=== PATIENT | female | born 1995 | race Caucasian/White ===

== ENCOUNTER 2018-01-24 02:56 | Inpatient (IN) ==
[~2018-01-24 02:56] MED LIST: *HR* Nalbuphine 10 MG/ML AMPUL IVP PRN; Famotidine 20 MG/2 ML VIAL IVP PRN; Naloxone 0.4 MG/ML INJ IVP PRN
[2018-01-24] MEDS ORDERED: Oxytocin 20 units/ LR 1000 mL 20 UNIT/1,000 ML BAG IVC SCH ×2 (03:00→10:15)
[2018-01-24] MEDS ORDERED: Ringers Solution, Lactated 1,000 ML IVC SCH (03:00)
[2018-01-24 03:16] LABS: Basophils % 0.3 %; Eosinophils # 0.1 K/mcL (0.0-0.6); Eosinophils % 0.6 %; Hematocrit 34.5 % (35.3-44.9); Hemoglobin 11.6 g/dL (11.5-15.4); Immature Granulocytes % 0.6 % (0-4); Lymphocytes # 3.3 K/mcL (0.6-4.6); Lymphocytes % 22.8 %; Mean Corpuscular HGB Conc 33.6 g/dL (31.6-35.5); Mean Corpuscular Volume 83.3 fL (83.0-100.0); Mean Platelet Volume 11.1 fL (9.4-12.4); Monocytes % 7.1 %; Platelet Count 252 K/mcL (140-400); Red Blood Count 4.14 M/mcL (3.82-4.97); Red Cell Distribution Width 14.4 % (11.5-14.5); Segmented Neutrophils % 68.6 %
[2018-01-24 03:24] LABS: Amphetamine Screen,Urine Negative ng/mL (Cutoff=1000); Barbiturate Screen,Urine Negative ng/mL (Cutoff=200); Benzodiazepines Screen,Urine Negative ng/mL (Cutoff=200); Cannabinoid Screen,Urine Positive ng/mL (Cutoff = 50); Cocaine Screen,Urine Negative ng/mL (Cutoff= 300); Opiate Screen,Urine Positive ng/mL (Cutoff=300); Phencyclidine Screen,Urine Negative ng/mL (Cutoff=25)
--- NOTE | 2018-01-24 05:08 | OB Labor Progress Note ---
Date of Encounter: 01/24/18 Time of Encounter: 03:06 Labor Progress Note - Subjective Subjective: Pt experiencing discomfort with contractions. Called in by RN for prolonged deceleration. - Cervix Cervix: 4/70/-2 rapidly changed to 5/80/-2 - Heart Tones Heart Tones: Baseline 130's Moderate variability Accelerations present Prolonged deceleration to shira 50bpm FHR Category II - [place]: every 3-5 and palpate moderate - Interventions Interventions: SVE IUPC FSE - Plan Plan: Continue expectant management Frequent position changes Anticipate Dr. Raymond made aware
[2018-01-24] MEDS ORDERED: *HR* FentaNYL (PF) 100 MCG/2 ML VIAL EP ONE (05:28)
[2018-01-24] MEDS ORDERED: Bupivacaine-MPF 0.25% 10 ML VIAL EP ONE (05:28)
[2018-01-24] MEDS ORDERED: Epidural Premix (fent/bupiv) 110 ML EP SCH (05:30)
[2018-01-24] MEDS ORDERED: Bupivacaine-MPF 0.25% 10 ML VIAL ONE (05:32)
[2018-01-24] MEDS ORDERED: *HR* FentaNYL (PF) 100 MCG/2 ML VIAL ONE (05:32)
[2018-01-24] MEDS ORDERED: Lidocaine -MPF 2% 5 ML VIAL ONE (05:32)
[2018-01-24] MEDS ORDERED: Lidocaine/EPI 1:200k 2% PF 20 ML VIAL ONE (05:33)
--- NOTE | 2018-01-24 06:18 | Anesthesia Evaluation PreOp ---
Date of Encounter: 01/24/18 Time of Encounter: 05:35 - Past History Planned Operation: labor epidural Cardiac History: Denies any Significant Hx Pulmonary History: Smoker (1/2ppd.), Asthma [employer] History: Denies Any Significant HX Other Medical History: Denies Any Significant HX Anesthesia History: No Prior Anesthetic Complications, Past Anesthesia (T&A, exc. cervical lymph node.) : Yes Alcohol Use: none Drug use: marijuana Medications and Allergies No Known Home Drugs 01/24/18 [History] 3 Allergy/AdvReac Type Severity Reaction Status Date / Time Carbinoxamine [From [facility]] Allergy Hives Verified 01/24/18 02:44 pseudoephedrine [From [facility]] Allergy Hives Verified 01/24/18 02:44 Sulfa (Sulfonamide Allergy Hives Verified 01/24/18 02:44 Antibiotics) - Meds/Allergy Pre-op Review Medications Reviewed: Yes Allergies Reviewed: Yes Beta Blockers on Current Med List: No Anesthesia Results - Labs 01/24/18 03:00 Anesthesia Exam VSS and FHTS stable. Height: 5'3" Weight: 93kg Pain Scale: 7 Pain Scale Used: Numeric (1 - 10) - HEENT Pupil (Motor): Pupils equal, EOMI Mallampati: III Teeth: Normal Oral Opening: Greater than 3 - [employer] LOC: Oriented [employer] Motor: Normal RUE, Normal LUE, Normal RLE, Normal LLE, Normal Face [employer] Sensory: Normal: RUE, LUE, RLE, LLE, Face - Cardiac Rhythm: Regular - Pulmonary Breath Sounds: bilateral Clear Respiratory Effort: Symmetrical Anesthesia Assess/Plan ASA Score: 2 Modified [place] Scale for Level of Consciousness: Cooperative, oriented, and tranquil Anesthetic Plan: Regional Monitoring Plan: Standard Monitors
--- NOTE | 2018-01-24 06:22 | Anesthesia Procedures ---
Date of Encounter: 01/24/18 Time of Encounter: 05:35 Procedures: Anesthesia - Epidural/Spinal Patient ID/Chart reviewed: Yes Patient examined: Yes OB Eval: Gestational age: 37 OB Eval: : 1 OB Eval: Hx Para: 0 OB Eval: Dilated at (cm): 6 OB Eval: Contractions: Non-stressed pattern Consent Obtained: Yes Supplemental Oxygen: None/Room Air Site Prep: Aseptic Technique, Sterile prep and drape, Povidone-Iodine 1% Patient position: upright Local Anesthetic: Lidocaine 1% Amount of Local Anesthetic used: 3 Touhy Needle Gauge: 18 Touhy Needle Depth (cm): 8 Catheter Depth at Skin (cm): 20 Test Dose (1.5% Lido + Epi): Volume given (mls): 3 Test Dose Result: Negative Loading Dose: 0.25% Marcaine (mls): 8 Loading Dose: Fentanyl (mcg): 100 Loading Dose Administered: Thru Catheter Infusion Med: 0.125% Bupivacaine w/ 2 mcg/ml Fentanyl Infusion Rate (mls/hr): [address]: Tegaderm, Tape Interspace Used: L3-L4 Loss of Resistance (OUSMANE): Yes Blood: No CSF: No Paresthesia: No Vitals + FHT's: 3 Vital Signs Time 0535 0555 0600 0605 0610 BP 181/96 175/99 170/89 161/95 155/84 Pulse 101 100 90 85 79 FHTs 120 120 120 120 120
--- NOTE | 2018-01-24 07:56 | OB/GYN History & Physical ---
Date of Encounter: 01/24/18 Time of Encounter: 07:52 Assessment and Plan (1) 37 weeks gestation of Current visit: Yes Status: Acute (2) PROM (premature rupture of membranes) Current visit: Yes Status: Acute Loin is a 22-year-old female 1 at 37 weeks and 5 days with premature rupture membranes. She is in labor progressing. Plan is expectant management. Patient will get an IV and epidural. Qualifiers: Qualified Code(s): O42.00 - Premature rupture of membranes, onset of labor within 24 hours of rupture, unspecified weeks of gestation History of Present Illness Chief complaint: R/O ROM HPI: Ms. Valle is a 22 year old female 1 who presented to labor and delivery with concern of ruptured membranes. On presentation patient is korey irregularly. She believed that she has Guille structure membranes at 12:30 AM. On presentation patient was 1 cm. She progressed to 4 cm. She has a due date of February 09 making her 37 weeks and 5 days. She is group B negative. She heart rate is 150s and category 1. She has allergies to sulfa, Rondec causing hives. Current medications include vitamins and Zofran. Chronic medical conditions include asthma. Surgical history includes a tonsillectomy and lymph node biopsy. She has no history of abnormal Pap smears, STDs or pelvic infections. She has no history of abnormal breast findings. Socially she denies tobacco, alcohol, illicit drug use. Family history significant for diabetes and thyroid disease. Past Med Surg Social Fam HX - Past Medical History Medical history: no medical history Psychiatric history: no psych history - Past Surgical History Surgical History: other Additional surgical history: T&A - Social History Smoking Status: Current every day smoker Packs per day: 1/2 Smokeless Tobacco Status: Yes Alcohol use: none Drug use: marijuana - Family History Mother Living Status: Still Living Hx Family Cardiac Disorders: Yes (HTN) Hx Family Respiratory Disorders: No Hx Family Cancer: No Hx Family GI Disorders: No Hx Family Genitourinary Disorders: No Hx Family Endocrine Disorder: No Hx Family Musculoskeletal Disorders: No Hx Family Neuromuscular Disorders: No Hx Family Neurologic Disorders: No Hx Family HEENT Disorders: No Hx Family Autoimmune Disorders: No Hx Family Reproductive Disorders: No Hx Family Psychosocial Disorders: No Hx Family Medical Disorders: No Obstetrical History - Pregnancies : 1 Medications and Allergies No Known Home Drugs 01/24/18 [History] 3 Allergy/AdvReac Type Severity Reaction Status Date / Time Carbinoxamine [From [facility]] Allergy Hives Verified 01/24/18 02:44 pseudoephedrine [From [facility]] Allergy Hives Verified 01/24/18 02:44 Sulfa (Sulfonamide Allergy Hives Verified 01/24/18 02:44 Antibiotics) Exam - Vital Signs Vital signs: Initial Vital Signs Pulse Resp BP 93 15 146/70 01/24/18 02:29 01/24/18 02:29 01/24/18 02:29 - Constitutional Constitutional: well developed - HEENT HEENT: PERRL - Neck Neck exam: full ROM - Lungs Respiratory exam: CTAB - Cardiovascular Cardiovascular exam: RRR - Breasts Breast: bilateral: normal - Abdomen Abdomen: Present: bowel sounds normal, gravid, non tender - Extremities Extremities exam: full ROM - Vagina Vagina: Present: normal moisture - Cervix Dilation: 4 Effacement: 50 Station: -2 - Uterus Uterus exam: Present: normal size Results Result Diagrams: 01/24/18 03:00 Abnormal lab results WBC 14.5 K/mcL (4.3-11.1) H 01/24/18 03:00 Hct 34.5 % (35.3-44.9) L 01/24/18 03:00 Neutrophils # 10.0 K/mcL (1.6-8.9) H 01/24/18 03:00 Urine Opiates Screen Positive ng/mL (Isbarg=885) H 01/24/18 03:00 U Marijuana (THC) Screen Positive ng/mL (Cutoff = 50) H 01/24/18 03:00 All other labs normal. - VTE Reasons for not Prescribing Prophylaxis: Treatment not Indicated - Low risk for VTE
[2018-01-24] MEDS ORDERED: *HR* Ropivacaine/PF 0.5% 20 ML VIAL ONE (08:49)
--- NOTE | 2018-01-24 09:40 | OB Labor Progress Note ---
Date of Encounter: 01/24/18 Time of Encounter: 09:35 Labor Progress Note - Subjective Subjective: Called to see patient with AL/0 station, uncomfortable. Reports feelings including pressure and urge to defecate. Pain controlled with epidural, reports intermittent "shakying" currently. Desires to practice push. - Vital Signs Vital Signs: VSS, HDS Afebrile - Cervix Cervix: AL/C/0 - Heart Tones Heart Tones: 120bpm, mod tessa, +accels, early decels with contraction(s) CAT II tracing q3min contraction(s) - [place] Moul[place]: q3min - Interventions Interventions: IVF - Plan Plan: AL was reducible, patient now C/C/0. Practice pushing with patient, will continue toward . MD Olive
--- NOTE | 2018-01-24 10:03 | OB/GYN Procedure Note ---
Delivery - Delivery Date: 01/24/18 Provider: Marlene Barker (Dr. Raymond present for delivery) Intrapartum events: none Delivery induction: oxytocin Delivery augmentation: pitocin Delivery monitor: external FHT, external uterine, internal FHT, internal uterine Anesthesia: epidural Quantitated Blood Loss: 250 - (s) Infant A Delivery Date: 01/24/18 Delivery Time: 09:48 Presentation: vertex Position: NASH Route of delivery: Gender: Male Viability: Viable Weight Gram: 2820 kg Shoulder Dystocia: not encountered Placenta: spontaneous Cord: nuchal cord (nuchal cord x1, loose, delivered through) - Repair Episiotomy: none - Complications Delivery complications: none - Disposition Mom disposition: stable in LDR - Comments Comments: Called to patient bedroom at C/C/+2. With excellent maternal effort, delivered infant in NASH position of an intact perineum with adequate breathing and excellent tones. Restitution of head to NASH position and L anterior shoulder delivered first. Loose nuchal cord x1 was appreciated at which point we decided to deliver through. THe posterior R shoulder delivered without difficulty and in sync to maternal valsalva. Vigorous and crying (male) was delivered at 0948AM, measuring 2820gms. 60 second cord delay was performed and cord gases were collected. We then delivered the placenta with ease and intact. The placenta had no indication(s) that required pathological evaluation, therefore it was not sent. Perineum was examined and found to be intact with small bilateral, superficial laceration(s). No suture was required for repair. Bimanual examination was performed to ensure contractility of uterus as well as no retained productis of conception. BERE was found to be boggy, therefore we administered one dose of IM methergine as patient was without history of HTN. Remainder of IV pitocin was administered, per usual, in the setting. EBL: 250mL Apgars: 9,9 Weight: 2820gm Male, vigorous, crying Placenta: Intact, 3VC, normal cord insertion
[2018-01-24] MEDS ORDERED: Measles/Mumps/Rubella Vacc 0.5 ML VIAL SQ PRN (10:11)
[2018-01-24] MEDS ORDERED: Rho Immune Globulin 1,500 UNIT SYRINGE IM PRN (10:11)
[2018-01-24] MEDS ORDERED: Acetaminophen 325 MG TABLET PO PRN (10:11)
[2018-01-24] MEDS ORDERED: Ibuprofen 600 MG TABLET PO PRN (10:11)
[2018-01-24] MEDS ORDERED: Ondansetron 4 MG/2 ML VIAL ONE (10:54)
[2018-01-24] MEDS ORDERED: Ondansetron 4 MG/2 ML VIAL IVP ONE (10:57)
[2018-01-24] MEDS ORDERED: *HR* Labetalol 20 MG/4 ML SYRINGE IVP ONE (11:23)
[2018-01-24] MEDS ORDERED: NIFEdipine XL (24 HR) 30 MG TAB.ER.24 PO ONE (16:19)
[2018-01-24] MEDS ORDERED: Methylergonovine 0.2 MG/ML AMPUL IM ONE (18:02)
[2018-01-25 06:53] LABS: Basophils % 0.3 %; Eosinophils # 0.2 K/mcL (0.0-0.6); Hematocrit 32.6 % (35.3-44.9); Immature Granulocytes % 0.6 % (0-4); Lymphocytes # 2.9 K/mcL (0.6-4.6); Lymphocytes % 19.4 %; Mean Corpuscular HGB Conc 33.7 g/dL (31.6-35.5); Mean Corpuscular Hemoglobin 28.4 pg (28.0-33.3); Mean Platelet Volume 10.8 fL (9.4-12.4); Monocytes # 1.3 K/mcL (0.0-1.3); Monocytes % 8.7 %; Neutrophils # 10.6 K/mcL (1.6-8.9); Platelet Count 240 K/mcL (140-400); Red Blood Count 3.88 M/mcL (3.82-4.97); Red Cell Distribution Width 14.6 % (11.5-14.5)
[2018-01-25] MEDS ORDERED: Prenatal Vit/FA 1 EACH TABLET PO SCH (09:00)
--- NOTE | 2018-01-25 09:56 | Discharge Summary ---
Date of Encounter: 01/25/18 Time of Encounter: 09:54 - Discharge Diagnosis (1) Vaginal delivery Priority: Primary Status: Acute Comments: Stable in PP, pain well managed on po pain medication, tolerates diet, bottle feeding, desires discharge to guest status due to infant 3 day hold. (2) Gestational hypertension Priority: Primary Status: Acute Comments: Discussed with Dr. Leos will place on labetalol 200 mg twice a day, follow up in office in 1 week Qualifiers: Trimester: third trimester Qualified Code(s): O13.3 - Gestational [ -induced] hypertension without significant proteinuria, third trimester - Discharge Medications Prescriptions: Ibuprofen [Motrin] 600 mg PO Q6HR PRN #60 tablet PRN Reason: Cramping Docusate [Colace] 100 mg PO BID #30 capsule Labetalol [Trandate] 200 mg PO BID #60 tablet Home Medications: Acetaminophen [Tylenol] 650 mg PO Q6HR PRN tablet 01/25/18 [Rx] Docusate [Colace] 100 mg PO BID #30 capsule 01/25/18 [Rx] Ibuprofen [Motrin] 600 mg PO Q6HR PRN #60 tablet 01/25/18 [Rx] Labetalol [Trandate] 200 mg PO BID #60 tablet 01/25/18 [Rx] Vit/FA 1 each PO DAILY tablet 01/25/18 [Rx] Allergies/Adverse Reactions: 3 Allergy/AdvReac Type Severity Reaction Status Date / Time Carbinoxamine [From [facility]] Allergy Hives Verified 01/24/18 02:44 pseudoephedrine [From [facility]] Allergy Hives Verified 01/24/18 02:44 Sulfa (Sulfonamide Allergy Hives Verified 01/24/18 02:44 Antibiotics) Data Procedures and tests throughout hospitalization: Laboratory Tests 01/24/18 01/24/18 01/25/18 03:00 03:00 06:30 WBC 14.5 H 15.2 H RBC 4.14 3.88 Hgb 11.6 11.0 L Hct 34.5 L 32.6 L MCV 83.3 84.0 MCH 28.0 28.4 MCHC 33.6 33.7 RDW 14.4 14.6 H Plt Count 252 240 MPV 11.1 10.8 Immature Gran % 0.6 0.6 Seg Neutrophils % 68.6 70.0 Lymphocytes % 22.8 19.4 Monocytes % 7.1 8.7 Eosinophils % 0.6 1.0 Basophils % 0.3 0.3 Neutrophils # 10.0 H 10.6 H Lymphocytes # 3.3 2.9 Monocytes # 1.0 1.3 Eosinophils # 0.1 0.2 Basophils # 0.0 0.0 Urine Opiates Screen Positive H Ur Barbiturates Screen Negative Ur Phencyclidine Scrn Negative Ur Amphetamines Screen Negative U Benzodiazepines Scrn Negative Urine Cocaine Screen Negative U Marijuana (THC) Screen Positive H Ur Drug Screen Interp See Below Labs on day of discharge: Labs from last 24 hours 01/25/18 06:30 WBC 15.2 H RBC 3.88 Hgb 11.0 L Hct 32.6 L MCV 84.0 MCH 28.4 MCHC 33.7 RDW 14.6 H Plt Count 240 MPV 10.8 Immature Gran % 0.6 Seg Neutrophils % 70.0 Lymphocytes % 19.4 Monocytes % 8.7 Eosinophils % 1.0 Basophils % 0.3 Neutrophils # 10.6 H Lymphocytes # 2.9 Monocytes # 1.3 Eosinophils # 0.2 Basophils # 0.0 Date of admission: 01/24/18 02:56 Primary care physician: PCP NONE Consults: 01/24/18 10:11 Consult to Car Lot Attendant [CONS] Routine Comment: Vaginal delivery, consult needed Discharging clinician: Serenity Rashid Anticipated date of discharge: 01/25/18 - Patient Status Disposition: Home, Self-Care Condition: Good Functional capacity at discharge: independent ambulation Overall status at discharge: patient is progressing back to baseline - Discharge Instructions Follow Up With: NONE,PCP [Primary Care Provider] - Ran Raymond MD [Partnered Physician] - - Diet and Activity Activity: resume usual activities as tolerated Diet: regular diet Hospital Course Reason for admission: rupture of membranes Delivery: Episiotomy: none Laceration: none Other procedures: none complications: none Discharge diagnosis: IUP at term delivered baby: male Hospital course: Delivery - Delivery Date: 01/24/18 Provider: Marlene Barker (Dr. Raymond present for delivery) Intrapartum events: none Delivery induction: oxytocin Delivery augmentation: pitocin Delivery monitor: external FHT, external uterine, internal FHT, internal uterine Anesthesia: epidural Quantitated Blood Loss: 250 - (s) Infant A Infant Delivery Date: 01/24/18 Infant Delivery Time: 09:48 Presentation: vertex Position: NASH Route of delivery: Gender: Male Viability: Viable Weight Gram: 2820 kg Shoulder Dystocia: not encountered Placenta: spontaneous Cord: nuchal cord (nuchal cord x1, loose, delivered through) - Repair Episiotomy: none - Complications Delivery complications: none - Disposition Mom disposition: stable in PP and appropriate for discharge. Time Attestation: Total time spent providing and/or coordinating discharge services: Time Spent: Less than 30 minutes Exam - Constitutional Vitals: Temp Pulse Resp BP Pulse Ox 98.4 F 86 16 153/97 98 01/25/18 08:03 01/25/18 08:03 01/25/18 08:03 01/25/18 08:03 01/25/18 04:10 General appearance IM: A&O X 3 - Respiratory Respiratory exam: Present: CTAB - Cardiovascular Cardiovascular exam IM: Present: RRR - GI/Abdominal GI/Abdominal exam IM: soft - Uterine Tone: Firm Uterus Position: At Umbilicus - Extremities Exam Extremities exam IM: Present: normal capillary refill - Neurological Exam Neurological exam: normal gait, oriented X3 - Psychiatric Additional comments: reports good mood
[2018-01-25 15:23] VITALS: BP 115/68
== END 2018-01-25 18:03 | disposition home or self-care (01) | DRG 560 ==
LOC: 1NENULAB → 1NENUOBS 12:47
PROVIDERS: ADMIT Obstetrics & Gynecology; ATTEND Obstetrics & Gynecology